=== PATIENT | male | born 1950 | race Caucasian/White ===

== ENCOUNTER 2024-12-26 09:39 | Inpatient (IN) | payer MEDICARE, OTHER ==
[~2024-12-26] VITALS: Ht 177.8 cm; Wt 83.7 kg
[2024-12-26] MEDS ORDERED: LIDOCAINE 2% VISCOUS 6 ML SYR TOP ONE (10:15)
[2024-12-26] MEDS ORDERED: CEPHALEXIN500 MG PO (10:19)
[2024-12-26 10:28] LABS: BILIRUBIN, URINE NEGATIVE (negative); BLOOD/HGB, URINE TRACE-I (Negative); KETONE, URINE NEGATIVE (Negative); LEUK ESTERASE, URINE NEGATIVE (negative); NITRITE, URINE NEGATIVE (negative); PH, URINE 5.5 (5-7)
[2024-12-26] MEDS ORDERED: TRULICITY3 MG/0.5 M SQ (10:35)
[2024-12-26] MEDS ORDERED: ATENOLOL100 MG PO (10:36)
[2024-12-26] MEDS ORDERED: ATORVASTATIN CA20 MG PO (10:36)
[2024-12-26] MEDS ORDERED: ISOSORBIDE MONO30 MG PO (10:36)
[2024-12-26] MEDS ORDERED: JARDIANCE10 MG PO (10:36)
[2024-12-26] MEDS ORDERED: GABAPENTIN300 MG PO (10:36)
[2024-12-26] MEDS ORDERED: LISINOPRIL20 MG PO (10:36)
[2024-12-26] MEDS ORDERED: METFORMIN HCL500 M1 PO (10:37)
[2024-12-26 10:38] LABS: EPITHELIAL CELLS, URINE SQUAMOUS 1+ /lpf (0-1+)
[2024-12-26 10:39] LABS: BACTERIA, URINE NONE SEEN /hpf (negative); CASTS, URINE NONE SEEN \\lpf; COLLECTION TYPE, URINE CLEAN CATCH; CRYSTALS, URINE NONE SEEN (0-1+); REFLEX CULTURE, URINE Yes (No)
[2024-12-26 11:39] LABS: HEMOGLOBIN 11.4 g/dL (12.0-18.0)
[2024-12-26 11:42] LABS: BASOPHILS 0.3 % (0-2); EOSINOPHILS 0.1 % (0-6); LYMPHOCYTES 6.1 % (24-44); MCH 36.6 (27-36); MCHC 33.6 g/dl (30-36); MCV 108.7 fl (81-99); NEUTROPHILS 87.5 % (39-80); PLATELET COUNT 267 K/uL (140-440); RBC 3.12 M/ul (4.3-5.7); RDW 16.6 (10.5-15.0)
[2024-12-26 11:57] LABS: ANION GAP 19.1 (7-21); BUN/CREATININE RATIO 12.39 (6.0-28.6); CALCIUM 9.3 mg/dL (8.5-10.1); CREATININE, SERUM 3.63 mg/dL (0.70-1.30); POTASSIUM 5.1 mmol/L (3.5-5.1)
[2024-12-26] MEDS ORDERED: SODIUM CHLORIDE 0.9% 1,000 ML IV PRN (12:15)
[2024-12-26] MEDS ORDERED: CEFTRIAXONE/SODIUM CHLORIDE 2 GM/100 ML PIGGYBACK IV SCH (14:21)
[2024-12-26] MEDS ORDERED: IBLOOD GLUCOSE TEST STRIP 1 EA TEST XX PRN (14:30)
[2024-12-26] MEDS ORDERED: ondansetron HCL 4 MG/2 ML VIAL IV PRN (14:30)
[2024-12-26] MEDS ORDERED: LACTATED RINGER'S 1,000 ML IV SCH (14:30)
[2024-12-26] MEDS ORDERED: ACETAMINOPHEN 325 MG TAB PO PRN (14:30)
[2024-12-26] MEDS ORDERED: DEXTROSE 5% 1,000 ML IV PRN (14:30)
[2024-12-26] MEDS ORDERED: GLUCAGON,HUMAN RECOMBINANT 1 MG/ML VIAL SUB-Q PRN (14:30)
[2024-12-26] MEDS ORDERED: DEXTROSE 50% 50 ML SYR IV PRN ×2 (14:30)
[2024-12-26] MEDS ORDERED: POLYETHYLENE GLYCOL 3350 1 PACKET PO SCH (15:59)
[2024-12-26] MEDS ORDERED: SENNOSIDES/DOCUSATE 1 EA TAB PO PRN (16:00)
[2024-12-26 16:58] VITALS: BP 143/70
[2024-12-26] MEDS ORDERED: INSULIN LISPRO 100 UNIT/ML ML SUB-Q SCH (17:00)
[2024-12-26] MEDS ORDERED: IBLOOD GLUCOSE TEST STRIP 1 EA TEST VI SCH (17:00)
[2024-12-26 17:12] LABS: ANION GAP 13.6 (7-21); BUN/CREATININE RATIO 14.13 (6.0-28.6); CALCIUM 9.4 mg/dL (8.5-10.1); CREATININE, SERUM 2.76 mg/dL (0.70-1.30); POTASSIUM 4.6 mmol/L (3.5-5.1)
--- NOTE | 2024-12-26 18:10 | NUR ---
Patient to the medical floor. Pt is alert and oriented x4, no acute distress. [place]ley intact/patent, concenrated urine noted. Patient tolerated dinner well. at bedside. Patient oriented to unit and call light. Personal supplies and call light within reach.
--- NOTE | 2024-12-26 18:24 | NUR ---
PATIENT IN BED AT THIS THIS TIME. LEGAL SUPPORT MANAGER CHARTED I&O'S. CALL LIGHT WITH IN REACH, NOTHING ELSE NEEDED AT THIS TIME.
[2024-12-26 19:35] VITALS: BP 119/58
--- NOTE | 2024-12-26 19:37 | NUR ---
Awake, alert and oriented to all, pleasant and cooperative. On room air. lungs clear, regular Rate and Rhythm, abd soft, HEA. LBM 12/25. IVF infusing RH w/o problems, no c/o pain. aware of NPO status after midnight for am abd XR. f/c placed on admission draining medium yellow colored urine.. tolerating liquids well. repositions in bed
[2024-12-26] MEDS ORDERED: ATORVASTATIN 20 MG TAB PO SCH (21:00)
[2024-12-26] MEDS ORDERED: GABAPENTIN 300 MG CAP PO SCH (21:00)
[2024-12-26] MEDS ORDERED: MELATONIN 3 MG TAB PO PRN (21:00)
[2024-12-26] MEDS ORDERED: HEParin SOD (PORCINE) 5,000 UNIT/ML SDV SUB-Q SCH (21:00)
--- NOTE | 2024-12-26 22:11 | NUR ---
Resting, eyes closed, on room air, IVF infusing, f/c patent. no s/sx distress
[2024-12-27] VITALS (7 sets, daily range): BP systolic 106–132; BP diastolic 43–62
--- NOTE | 2024-12-27 01:25 | NUR ---
AWAKENS EASILY, NO C/O PAIN. ON ROOM AIR, IVF INFUSING W/O PROBLEMS, COOPERATIVE WITH VITALS AND SECOND ASSESSMENT. F/C PATENT DRAINING DARK YELLO URINE. REPOSITIONS SELF IN BED
--- NOTE | 2024-12-27 03:21 | NUR ---
resting, eyes closed, IVF infusing w/o problems. f/c patent NPO for am procedure
[2024-12-27 05:40] LABS: EOSINOPHILS 1.9 % (0-6); HEMATOCRIT 28.2 % (35.0-50.0); HEMOGLOBIN 9.7 g/dL (12.0-18.0); LYMPHOCYTES 18.7 % (24-44); MCH 36.6 (27-36); MCHC 34.3 g/dl (30-36); MCV 106.9 fl (81-99); MONOCYTES 9.7 % (0-12); NEUTROPHILS 68.7 % (39-80); PLATELET COUNT 222 K/uL (140-440); RBC 2.64 M/ul (4.3-5.7); RDW 16.7 (10.5-15.0)
[2024-12-27 05:54] LABS: ANION GAP 14.3 (7-21); BUN/CREATININE RATIO 19.65 (6.0-28.6); CALCIUM 8.8 mg/dL (8.5-10.1); CREATININE, SERUM 1.73 mg/dL (0.70-1.30); MAGNESIUM 1.8 mg/dL (1.8-2.4); POTASSIUM 4.3 mmol/L (3.5-5.1)
--- NOTE | 2024-12-27 06:05 | NUR ---
Pt awakens easily, no c/o pain. On room air. IVF infusing w/o problems. f/c patent draining dark yellow urine with sediments. NPO, did own oral care. No c/o pain or n/v. Cooperative with lab drawn, vitals and changing his street clothes into our hosp gowns,
--- NOTE | 2024-12-27 07:30 | NUR ---
wet process technician in room with patient.
--- NOTE | 2024-12-27 09:12 | NUR ---
PATIENT IN BED AT THIS TIME. FOUR ROLL CALENDER OPERATOR CHARTED VITALS AND I&O'S. PATIENT WASHED HIS FACE REFUSED BRUSHING AND MOUTH WASH. CALL LIGHT WITH IN REACH, NOTHING ELSE NEEDED AT THIS TIME.
[2024-12-27] MEDS ORDERED: CEFUROXIME500 MG PO (10:17)
--- NOTE | 2024-12-27 11:03 | NUR ---
PT RESTING IN BED, DENIES NEED FOR PAIN MEDICATION AT THIS TIME. AT BEDSIDE. CALL ARTEAGA IN REACH, BED IN LOW POSITION AND LOCKED.
[2024-12-27] MEDS ORDERED: PHARMACY RENAL DOSE ADJUSTMENT 1 DOSE MISC PO SCH (12:00)
== END 2024-12-27 11:00 | disposition home or self-care (01) | DRG 690 ==
LOC: ED 09:39 → MS 14:30
PROVIDERS: Emergency Medicine; ADMIT Student in an Organized Health Care Education/Training Program; ATTEND Student in an Organized Health Care Education/Training Program
DX: N13.6 Pyonephrosis (principal); N10 Acute pyelonephritis; R33.9 Retention of urine, unspecified; I10 Essential (primary) hypertension; E78.5 Hyperlipidemia, unspecified; E11.40 Type 2 diabetes mellitus with diabetic neuropathy, unspecified; N17.9 Acute kidney failure, unspecified; K59.00 Constipation, unspecified; E11.65 Type 2 diabetes mellitus with hyperglycemia; Z79.899 Other long term (current) drug therapy
CPT/HCPCS: 36415; 74018; 74176; 76775; 80048; 81001; 83735; 85025; 87088; A9270; J0696; J1644; J1815; J7121

== ENCOUNTER 2025-03-30 07:00 | Day surgery (SDC) | payer MEDICARE, OTHER ==
[2025-03-24 09:57] VITALS: BP 137/72
[~2025-03-30] VITALS: Ht 177.8 cm; Wt 79.5 kg
[2025-03-30] VITALS (12 sets, daily range): BP systolic 113–144; BP diastolic 58–78
[~2025-03-30 07:00] MED LIST: ADULT LOW DOSE81 MG PO; ATENOLOL100 MG PO; ATORVASTATIN CA20 MG PO; CEFAZOLIN SODIUM 2 GM/20 ML SYR IV SCH; CEFUROXIME500 MG PO; CEPHALEXIN500 MG PO; CHLORTHALIDONE25 MG PO; GABAPENTIN300 MG PO; IBLOOD GLUCOSE TEST STRIP 1 EA TEST VI PRN; ISOSORBIDE MONO30 MG PO; JARDIANCE10 MG PO; LACTATED RINGER'S 1,000 ML IV SCH; LIDOCAINE HCL 1% 5 ML SDV INJ ONE; LISINOPRIL20 MG PO; METFORMIN HCL500 M1 PO; TRULICITY3 MG/0.5 M SQ; VITAMIN D3125 MC2 PO
[2025-03-30] MEDS ORDERED: LIDOCAINE HCL 2% 5 ML SDV ONE (07:06)
[2025-03-30] MEDS ORDERED: propofoL 200 MG/20 ML VIAL ONE ×2 (07:06→08:04)
--- NOTE | 2025-03-30 07:32 | NUR ---
PT NOT AVAILABLE FOR VISIT. PROVIDED PRAYER.
[2025-03-30] MEDS ORDERED: IBLOOD GLUCOSE TEST STRIP 1 EA TEST VI PRN (07:45)
[2025-03-30] MEDS ORDERED: NALOXONE HCL 0.4 MG SYR IV PRN ×2 (07:45→13:00)
[2025-03-30] MEDS ORDERED: ondansetron HCL 4 MG/2 ML VIAL IV PRN ×2 (07:45→08:15)
[2025-03-30] MEDS ORDERED: droPERidol 5 MG/2 ML VIAL IV PRN (07:45)
[2025-03-30] MEDS ORDERED: fentaNYL citrate 50 MCG/ML SDV IV PRN (07:45)
[2025-03-30] MEDS ORDERED: BUPIVACAINE 0.75% IN DEXTROSE 2 ML AMP ONE (07:53)
[2025-03-30] MEDS ORDERED: fentaNYL citrate 100 MCG/2 ML VIAL ONE (07:54)
[2025-03-30] MEDS ORDERED: MORPHINE SULFATE 1 MG/ML VIAL ONE (07:59)
[2025-03-30] MEDS ORDERED: diphenhydrAMINE HCL 25 MG CAP PO PRN (08:15)
[2025-03-30] MEDS ORDERED: MORPHINE SULFATE 4 MG/ML VIAL IV PRN (08:15)
[2025-03-30] MEDS ORDERED: LACTATED RINGER'S 1,000 ML IV SCH (08:15)
[2025-03-30] MEDS ORDERED: OXYCODONE/APAP 5/325 TAB PO PRN (08:15)
[2025-03-30] MEDS ORDERED: ondansetron HCL 4 MG/2 ML VIAL ONE (08:29)
[2025-03-30] MEDS ORDERED: DEXTROSE 50% 50 ML SYR IV PRN ×2 (08:30)
[2025-03-30] MEDS ORDERED: IBLOOD GLUCOSE TEST STRIP 1 EA TEST XX PRN (08:30)
[2025-03-30] MEDS ORDERED: GLUCAGON,HUMAN RECOMBINANT 1 MG/ML VIAL SUB-Q PRN (08:30)
[2025-03-30] MEDS ORDERED: DEXTROSE 5% 1,000 ML IV PRN (08:30)
[2025-03-30] MEDS ORDERED: ISOSORBIDE MONONITRATE 30 MG TABCR PO SCH (09:00)
[2025-03-30] MEDS ORDERED: atenoloL 100 MG TAB PO SCH (09:00)
--- NOTE | 2025-03-30 11:18 | NUR ---
03/30/25 1118 Joana Martinez 1105-PT ARRIVES TO PACU VIA STRETCHER, RESTING SEMI FOWLERS, PT A+O X4, DENIES PAIN OR NAUSEA, VSS ON 6L VIA MASK. CBI PER DOCTORS ORDERS. 750 ML OF LIGHT PINK DRAINAGE EMPTIED FROM SHERMAN BAG. 1110-PT TITRATED TO RA, VS REMAIN STABLE.
--- NOTE | 2025-03-30 11:40 | NUR ---
Pt arrives to room, transferred via bed by AIRPLANE PILOT CHIEFCARMEN Bernard. Pt report received from CARMEN Bernard. Pt is A&O, denies any pain, no nausea, would like some iced water and some snacks. Pt oriented to room and call light, side rails up x4, call light in reach. Pt states he can't feel his legs at this time but can wiggle his toes.
[2025-03-30] MEDS ORDERED: IBLOOD GLUCOSE TEST STRIP 1 EA TEST XX SCH (12:00)
[2025-03-30] MEDS ORDERED: Insulin Regular, Human 100 UNIT/ML ML SUB-Q SCH (12:00)
--- NOTE | 2025-03-30 13:40 | NUR ---
UR CLINICAL REVIEW: 2 MN FOR VERSALUS-PER SEWER REPAIRER MEETS EXTENDED STAY FOR TURP WITH CBI MEDICARE EXTENDED STAY 03/30/25 @ 0817 ORDER MATCHES REG NO AUTH REQUIRED PER MEDICARE GUIDELINES DISCHARGE TO HOME IN AM IF CBI DC'D
--- NOTE | 2025-03-30 14:18 | NUR ---
Pt 3rd set of hourly vitals complete shortly before 2pm. Pt states he can now feel and move his legs. Denies any pain. Requests refill of his water and diet cranberry juice. Irrigated fluid from bladder is still bright to dark red.
[2025-03-30] MEDS ORDERED: PREDNISOLONE ACE5 ML OD (14:54)
[2025-03-30] MEDS ORDERED: TRULICITY4.5 MG/0.5 SUB-Q (14:55)
--- NOTE | 2025-03-30 15:45 | NUR ---
MED REC COMPLETE
--- NOTE | 2025-03-30 16:00 | NUR ---
In with pt to assess CBI color. Noted that it went back to red. Increased the CBI flow from the bags of fluid and will reassess. Pt is not c/o pain. Side rails up x4, call light in reach.
--- NOTE | 2025-03-30 17:46 | NUR ---
PATIENT GIVEN ONE UNIT OF INSULIN TO RIGHT ARM. NO OTHER NEEDS AT THIS TIME.
--- NOTE | 2025-03-30 18:09 | NUR ---
PATIENT IN BED WATCHING TV. VITALS AND I&O'S DONE AND CHARTED. CALL LIGHT IN REACH. NO FURTHER NEEDS AT THIS TIME.
--- NOTE | 2025-03-30 19:35 | NUR ---
RECEIVED REPORT FROM DAY SHIFT RN. PATIENT IS RESTING IN BED WATCHING TV. PATIENTS CBI IS OPEN TO A SMALL AMOUNT. PATIENT DENIES ANY NEEDS. CALL LIGHT IN REACH.
[2025-03-30] MEDS ORDERED: prednisoLONE ACETATE 1% 10 ML BTL OD SCH (21:00)
[2025-03-30] MEDS ORDERED: GABAPENTIN 300 MG CAP PO SCH (21:00)
--- NOTE | 2025-03-30 21:16 | NUR ---
PATIENTS VITALS TAKEN AND RECORDED. SHERMAN EMPTIED AND INTAKE AND OUTPUT RECORDED. PATIENTS CBI IS CONTINUIOS AT A SLOW DRIP. PATIENTS OUTPUT IS A DARKER PINK. PATIENT DENIES ANY PAIN. PATIENTS PUBIC CATH IS CAPPED AT THIS TIME. PATIENT IS ON RA. CPOX IN USE. ASSEMSENT COMPLETED. IV INFUSING PER ORDER. PATIENT DENIES ANY FURTHER NEEDS. CALL LIGHT IN REACH.
--- NOTE | 2025-03-30 22:25 | NUR ---
PATIENT IS RESTING IN BED WITH EYES CLOSED. CPOX READINGS ARE WNL. NAD NOTED. CALL LIGHT IN REACH. CBI CONTIUES AT A SLOW DRIP.
--- NOTE | 2025-03-31 00:31 | NUR ---
PATIENT IS RESTING IN BED WITH EYES CLOSED, CPOX READINGS ARE WNL. NAD NOTED. CBI CLAMPED. IV INFUSING PER ORDER. CALL LIGHT IN REACH.
[2025-03-31 01:57] VITALS: BP 119/61
--- NOTE | 2025-03-31 02:29 | NUR ---
PATIENTS VITALS TAKEN AND RECORDED. PATIENTS SHERMAN EMPTIED. INTAKE AND OUTPUT RECORDED. PATIENTS CBI REMAINS CLAMPED. PATIENT DENIES ANY PAIN. SCDS IN USE. CPOX IN USE. IV INFUSING PER ORDER. PATIENT DENIES ANY NEEDS. CALL LIGHT IN REACH.
[2025-03-31 02:30] VITALS: BP 119/61
--- NOTE | 2025-03-31 04:11 | NUR ---
PATIENT IS RESTING IN BED WITH EYES CLOSED, CPOX READINGS ARE WNL. NAD NOTED. CBI REMAINS CLAMPED. CALL LIGHT IN REACH IV INFUSING PER ORDER.
[2025-03-31 06:10] VITALS: BP 156/76
--- NOTE | 2025-03-31 06:26 | NUR ---
PATIENTS VITALS TAKEN AND RECORDED. INTAKE AND OUTPUT RECORDED. AM IV ABX INFUSING PER ORDER. PATIENT DENIES ANY PAIN. PATIENT DENIES ANY FURTHER NEEDS. CALL LIGHT IN REACH. CBI REMAINS CLAMPED. PATIENT DENIES ANY FURTHER NEEDS. CALL LIGHT IN REACH.
[2025-03-31] MEDS ORDERED: CEFTRIAXONE SODIUM 1 GM in SODIUM CHLORIDE 0.9% 100 ML IV SCH (07:00)
--- NOTE | 2025-03-31 07:42 | NUR ---
PT AWAKE WATCHING TV AT TIME OF SHIFT REPORT AGREES HE IS COMFORTABLE. DR HARRY IN TO SEE HIM DC INSTRUCTIONS DISCUSSED, ALL QUESTIONS ANSWERED.
[2025-03-31] MEDS ORDERED: OXYCODONE HCL5 MG PO (08:51)
[2025-03-31] MEDS ORDERED: CIPRO500 MG PO (08:52)
[2025-03-31 09:17] VITALS: BP 131/77
--- NOTE | 2025-04-02 18:35 | PATH ---
[facility] [address] [place], [place] [address] Signed SPECIMEN(S): A PROSTATE CHIPS SPECIMEN SOURCE: A. PROSTATE CHIPS CLINICAL HISTORY: BPH with incomplete bladder emptying, TURP with s/p catheter FINAL PATHOLOGIC DIAGNOSIS: Prostate chips, TURP: - Benign prostatic hyperplasia with focal chronic prostatitis. - No malignancy identified. [facility] MICROSCOPIC EXAMINATION: Histologic sections of all submitted blocks are examined by light microscopy. These findings, together with the gross examination, support the pathologic diagnosis. GROSS DESCRIPTION: The specimen, labeled and designated "Jacobo prostate maritza," is received in formalin and consists of multiple fragments of pink-ortiz rubbery tissue (21.5 g, 7.0 x 6.8 x 2.3 cm in aggregate). Approximately 70% of the specimen is submitted in cassette (A1-A10). VB (under the direct supervision of a pathologist) The Gross Description was prepared using a voice recognition system. The report was reviewed for accuracy; however, sound-alike word errors, addition and/or deletions may occur. If there is any question about this report, please contact Client Services. ADDITIONAL NOTES: Immunohistochemical and/or in situ hybridization studies if performed in this case included appropriate positive controls that reacted as expected. This test was developed and its performance characteristics determined by [facility]. It has not been cleared or approved by the U.S. Food and Drug Administration. The FDA has determined that such clearance or approval is not necessary. This test is used for clinical purposes. It should not be regarded as investigational or for research. [facility] is certified under the Clinical Laboratory Improvement Amendments of 1988 (CLIA) as qualified to perform high complexity clinical PATIENT NAME: JASON DAVIS PATHOLOGY DATE OF : 46 REPORT #: [id number] PHYSICIAN: [facility] PCP: MARINA PEÑA MD REPORT IS CONFIDENTIAL AND NOT TO BE RELEASED WITHOUT AUTHORIZATION [address] [address] Signed laboratory testing. PERFORMING LABORATORY: Technical component was performed by [facility], [address] [place] [id number] (CLIA# [id number]). Professional interpretation was performed by [id number] - [facility], [address] [place] [id number] (CLIA#: [id number]). Diagnostician: Casimiro Cabrera MD Pathologist Electronically Signed 04/02/2025 Copies: ~ PATIENT NAME: JASON DAVIS PATHOLOGY DATE OF : 46 REPORT #: [id number] PHYSICIAN: [facility] PCP: MARINA PEÑA MD REPORT IS CONFIDENTIAL AND NOT TO BE RELEASED WITHOUT AUTHORIZATION
== END 2025-03-31 09:45 | disposition home or self-care (01) ==
LOC: DS 07:00 → MS 11:45 → DS 03-31 09:45
PROVIDERS: ATTEND Urology
PROC: 0VT08ZZ Resection of Prostate, Via Natural or Artificial Opening Endoscopic (ICD-10-PCS; principal; 2025-03-30 08:00)
PROC: 0T9B00Z Drainage of Bladder with Drainage Device, Open Approach (ICD-10-PCS; 2025-03-30 08:00)
DX: N40.1 Benign prostatic hyperplasia with lower urinary tract symptoms (principal); R33.8 Other retention of urine; N41.1 Chronic prostatitis; N32.89 Other specified disorders of bladder; N13.8 Other obstructive and reflux uropathy; R39.15 Urgency of urination; R39.12 Poor urinary stream; R35.0 Frequency of micturition; R35.1 Nocturia; E11.9 Type 2 diabetes mellitus without complications; I10 Essential (primary) hypertension; I25.10 Atherosclerotic heart disease of native coronary artery without angina pectoris; Z79.82 Long term (current) use of aspirin; Z79.84 Long term (current) use of oral hypoglycemic drugs; Z79.85 Long-term (current) use of injectable non-insulin antidiabetic drugs; Z79.899 Other long term (current) drug therapy
CPT/HCPCS: 00914; 51700; 88305; 96360; 96361; 96365; 96372; A9270; C1713; C1769; J0690; J0696; J1815; J2003; J2274; J2405; J2704; J3010; J7121